=== PATIENT | male | born 1985 | race American Indian/Alaskan Native ===

== ENCOUNTER 2023-10-24 06:00 | Day surgery (SDC) | payer BC, OTHER ==
[~2023-10-24] VITALS: Ht 195.6 cm; Wt 113.6 kg
[~2023-10-24 06:00] MED LIST: LACTATED RINGER'S 1,000 ML IV SCH
[2023-10-24] MEDS ORDERED: KETOROLAC TROMETHAMINE 30 MG/ML VIAL ONE (06:40)
[2023-10-24 06:55] VITALS: BP 132/74
[2023-10-24] MEDS ORDERED: CEFAZOLIN SODIUM 2 GM/20 ML SYR IV SCH (07:00)
[2023-10-24] MEDS ORDERED: LIDOCAINE HCL 1% 5 ML SDV INJ ONE (07:00)
[2023-10-24] MEDS ORDERED: TRANEXAMIC ACID 2,000 MG in SODIUM CHLORIDE 0.9% 100 ML IV SCH (07:00)
[2023-10-24] MEDS ORDERED: IBLOOD GLUCOSE TEST STRIP 1 EA TEST VI PRN ×2 (07:00→08:45)
--- NOTE | 2023-10-24 07:33 | NUR ---
PRE-OP VISIT. PT APPEARS RELAXED AND COMFORTABLE. SECURITY CONTROL ASSESSOR PROVIDED SUPPORTIVE PRESENCE, HOSPITALITY, PRAYER. PT EXPRESSED APPRECIATION.
[2023-10-24] MEDS ORDERED: ACETAMINOPHEN 1,000 MG/100 ML VIAL ONE (08:14)
[2023-10-24] MEDS ORDERED: KETAMINE in NS 50 MG/5 ML SYR ONE (08:14)
[2023-10-24] MEDS ORDERED: ondansetron HCL 4 MG/2 ML VIAL ONE (08:14)
[2023-10-24] MEDS ORDERED: DEXAMETHASONE SOD PHOS 4 MG/ML VIAL ONE (08:14)
[2023-10-24] MEDS ORDERED: LIDOCAINE HCL 2% 5 ML SDV ONE (08:14)
[2023-10-24] MEDS ORDERED: fentaNYL citrate 100 MCG/2 ML VIAL ONE ×2 (08:14→09:45)
[2023-10-24] MEDS ORDERED: TRAMADOL HCL 50 MG TAB PO PRN (08:15)
[2023-10-24] MEDS ORDERED: propofoL 200 MG/20 ML VIAL ONE (08:16)
[2023-10-24] MEDS ORDERED: fentaNYL citrate 50 MCG/ML SDV IV PRN (08:45)
[2023-10-24] MEDS ORDERED: ondansetron HCL 4 MG/2 ML VIAL IV PRN (08:45)
[2023-10-24] MEDS ORDERED: NALOXONE HCL 0.4 MG SYR IV PRN (08:45)
[2023-10-24] MEDS ORDERED: PROCHLORPERAZINE EDISYLATE 10 MG/2 ML VIAL IV PRN (08:45)
[2023-10-24] MEDS ORDERED: DICLOFENAC SOD 75 MG TABEC PO SCH (09:00)
[2023-10-24] MEDS ORDERED: TRAMADOL HCL50 MG PO (10:04)
--- NOTE | 2023-10-24 10:16 | NUR ---
10/24/23 1016 Ana Saxena 0988 PT ARRIVED TO PACU ON RA, PT REPROTS 2/10 PAIN AND TOLERBALE AT THIS TIME. VSS. PT REPORTS BEING COLD AND WARM AIR AND BLACKETS GIVEN. 1010 MD AT BEDSIDE TALKING TO PT. PT TALKING TO RN AND ELENITA CONCERNS
[2023-10-24 10:25] VITALS: BP 131/70
--- NOTE | 2023-10-24 10:42 | NUR ---
PT BACK TO DS FROM PACU ALERT AND AWAKE DENIES PAIN AND NAUSEA. CIRA HUGGER AND BLACKETS PLACED ON PT, CALL LIGHT WITH IN REACH. PT TAKING SIPS OF WATER TOLERATES WELL.
[2023-10-24 11:25] VITALS: BP 127/84
--- NOTE | 2023-10-24 11:25 | OR ---
[facility] [address], [place] [address] Signed DATE OF OPERATION: 10/24/2023 SURGEON: Denilson Zapata MD PREOPERATIVE DIAGNOSIS: Medial meniscus tear, left knee. POSTOPERATIVE DIAGNOSIS: Locked bucket-handle medial meniscus tear, left knee. PROCEDURE PERFORMED: Left knee arthroscopy with partial meniscectomy. DEAN OF WOMEN: None. ANESTHESIA: General. BLOOD LOSS: 100 mL. BRIEF HISTORY: Janelle is a 38-year-old gentleman with pain and locking in his knee. MRI was consistent with a complex tear of the posteromedial meniscus. Risks and benefits of operative treatment were discussed with him and he elected to proceed. Once consent was obtained, he was taken to the operating room, placed on the operating room table. After anesthesia was established, the left leg was placed in a well-padded leg calvo, right was placed in a leg calvo and flexed, abducted and externally rotated. The leg was prepped and draped in a standard sterile fashion. The portal sites were injected with 0.25% Marcaine with epinephrine. The standard inferolateral and superolateral portals were established and the scope was introduced in the knee. 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 Medial and lateral gutters were clear. The ACL and PCL were intact. Lateral compartment was intact. The medial compartment showed a locked bucket-handle tear of the meniscus with meniscus split anteriorly and locked in the notch. DESCRIPTION OF OPERATION: Electronically Signed By: DENILSON ZAPATA MD 10/24/23 1125 PATIENT NAME: JANELLE YBARRA OPERATIVE REPORT DATE OF : 85 REPORT #: [id number] PHYSICIAN: DENILSON ZAPATA MD PCP: GERRI BUSCH [facility]- REPORT IS CONFIDENTIAL AND NOT TO BE RELEASED WITHOUT AUTHORIZATION [facility] [address], [place] [address] Signed The standard inferomedial portal was established and the scope was moved to the medial side. We then partially cut the meniscus using arthroscopic scissors. I attempted to finish this cut with a [place] blade, however, the Akhi[place] blade came disconnected inside the knee. Multiple attempts were made to remove in the anterior portion of the knee. It did not slip to the posterolateral portion. This was located using image intensifier and the 70 degree scope. A posterolateral portal was then established using a percutaneous technique after localization using a spinal needle. The was then placed on the blade and it was easily removed. The partial meniscectomy was then completed using combination of the shaver and straight and curved biters. We were able to remove the entire thing and smoothed it down posteriorly. He has about a 70% meniscus removal. The chondral surfaces were intact with several areas of grade 2 chondromalacia. All debris was evacuated using the shaver. The scope was then withdrawn after feathering out the meniscus anteriorly. The portals were then closed with 3-0 nylon. Due to his allergy to all NSAIDs, he was not given any Toradol. The wounds were dressed with Adaptic, ABDs and Santy wrap. He tolerated the procedure well. All sponge, needle, and instrument counts were correct. Denilson Zapata MD BA/MODL /[id number] Copies: ~ Electronically Signed By: DENILSON ZAPATA MD 10/24/23 1125 PATIENT NAME: JANELLE YBARRA OPERATIVE REPORT DATE OF : 85 REPORT #: [id number] PHYSICIAN: DENILSON ZAPATA MD PCP: GERRI BUSCH [facility] REPORT IS CONFIDENTIAL AND NOT TO BE RELEASED WITHOUT AUTHORIZATION
--- NOTE | 2023-10-24 12:02 | NUR ---
1115 PT ABLE TO AMBULATE TO BATHROOM WITH OUT ASSIT HE IS ABLE TO VOID 300ML CLEAR YELLOW URINE. DISCHARGE INSTRUCTIONS GIVEN TO PT HE VOICED UNDERSTANDING PT ABLE TO DRESS HIMSELF. DRESSING CLEAN AND DRY. CMS TO LT LEG IN TACT.
== END 2023-10-24 11:35 | disposition home or self-care (01) ==
LOC: DS 06:00
PROVIDERS: ATTEND Specialist
PROC: 0SBD4ZZ Excision of Left Knee Joint, Percutaneous Endoscopic Approach (ICD-10-PCS; principal; 2023-10-24 08:30)
DX: S83.212A Bucket-handle tear of medial meniscus, current injury, left knee, initial encounter (principal); M22.42 Chondromalacia patellae, left knee; Z88.0 Allergy status to penicillin; Z88.5 Allergy status to narcotic agent; Z88.6 Allergy status to analgesic agent; X58.XXXA Exposure to other specified factors, initial encounter
CPT/HCPCS: J0131; J0690; J1100; J1885; J2001; J2405; J2704; J3010; J3490; J7121